=== PATIENT | female | born 1945 | race Caucasian/White ===

== ENCOUNTER 2017-10-13 07:47 | Outpatient (CLI) | payer OTHER ==
[~2017-10-13 07:47] MED LIST: ASA81 MG; ATACAND32 MG; CALCIUM1 TAB; CANDESARTAN-HC1 EAC1 PO; DICLOFENAC POTA50 MG; RISEDRONATE SODI5 MG; SYNTHROID50 MCG
== END 2017-10-13 07:53 | disposition home or self-care (01) ==
LOC: RX STUDY 07:47
DX: R13.10 Dysphagia, unspecified (principal)

== ENCOUNTER 2018-09-10 19:10 | Inpatient (IN) | payer OTHER ==
[~2018-09-10] VITALS: Ht 157.5 cm; Wt 49.9 kg
[2018-09-10] MEDS ORDERED: OMEPRAZOLE40 MG (19:29)
--- NOTE | 2018-09-10 19:33 | NUR ---
PTE ALERTA Y ORIENTADA X 3 ESFERAS, REFIERE VENIR POR INFECCION DE ORINA Y CON REFERIDO MEDICO POR ARF. SE PRESENTA A DR DONAHUE Y SE UBICA EN AREA DE OBSERVACION.
--- NOTE | 2018-09-10 21:25 | NUR ---
PACIENTE ALERTA Y ORIENTADA X3, CON BUEN PATRON RESPIIRATORIO Y SIGNOS VITALES ESTABLES, REFIERE LEVE DOLOR AL ORINAR. SE ABRE VENA CON ANGIO #20 PATENTE Y TINY DE EDEMA, SE MARICRUZ MUESTRAS BAJO MEDIDAS ASEPTICAS Y SE ADMINISTRAN MEDICAMENTOS TADEO ORDENADOS.
[2018-09-16] MEDS ORDERED: KEFLEX500 MG PO (10:59)
[2018-09-16] MEDS ORDERED: LEVOTHYROXINE50 MCG PO (10:59)
== END 2018-09-16 15:12 | disposition home or self-care (01) | DRG 690 ==
LOC: ER 19:10 → MEDI 09-11 08:20
PROVIDERS: ADMIT Internal Medicine
PROC: BT4JZZZ Ultrasonography of Kidneys and Bladder (ICD-10-PCS; principal; 2018-09-11)
DX: N39.0 Urinary tract infection, site not specified (principal); N17.8 Other acute kidney failure; E87.0 Hyperosmolality and hypernatremia; I10 Essential (primary) hypertension; E03.8 Other specified hypothyroidism; E86.0 Dehydration; M32.14 Glomerular disease in systemic lupus erythematosus; Z87.440 Personal history of urinary (tract) infections

== ENCOUNTER 2019-02-10 09:47 | Emergency (ER) | payer OTHER ==
[~2019-02-10] VITALS: Ht 152.4 cm; Wt 46.7 kg
[~2019-02-10 09:47] MED LIST changes: +KEFLEX500 MG PO; +LEVOTHYROXINE50 MCG PO; +OMEPRAZOLE40 MG
== END 2019-02-10 10:58 | disposition home or self-care (01) ==
LOC: ER 09:47
DX: N28.9 Disorder of kidney and ureter, unspecified (principal)

== ENCOUNTER 2019-04-22 19:23 | Emergency (ER) | payer OTHER ==
[~2019-04-22] VITALS: Ht 157.5 cm; Wt 48.5 kg
[2019-04-22] MEDS ORDERED: HYDROXYZIN10 MG/5 ML (19:35)
[2019-04-22] MEDS ORDERED: CARTIA XT240 MG (19:35)
== END 2019-04-22 23:08 | disposition home or self-care (01) ==
LOC: ER 19:23
DX: I16.1 Hypertensive emergency (principal); I10 Essential (primary) hypertension

== ENCOUNTER 2023-01-04 09:19 | Emergency (ER) | payer OTHER ==
[~2023-01-04] VITALS: Ht 157.5 cm; Wt 45.4 kg
[~2023-01-04 09:19] MED LIST changes: +CARTIA XT240 MG; +HYDROXYZIN10 MG/5 ML
[2023-01-04] MEDS ORDERED: NEURONTIN300 MG PO (10:53)
[2023-01-04] MEDS ORDERED: MEDROLPACK PO (10:53)
== END 2023-01-04 11:08 | disposition home or self-care (01) ==
LOC: ER 09:19
DX: R51.9 Headache, unspecified (principal)
CPT/HCPCS: 70150; 96372; 99284; J1100; J1885

== ENCOUNTER 2023-09-22 08:43 | Emergency (ER) | payer OTHER ==
[~2023-09-22] VITALS: Ht 152.4 cm; Wt 44.5 kg
[~2023-09-22 08:43] MED LIST changes: +MEDROLPACK PO; +NEURONTIN300 MG PO
[2023-09-22] MEDS ORDERED: AMLODIPINE-OLM1 EAC2 PO (08:52)
[2023-09-22] MEDS ORDERED: LOSARTAN POTASS50 MG PO (08:52)
[2023-09-22] MEDS ORDERED: FAMOtidine 10 MG/ML (4ML VIAL) IV STA (09:41)
[2023-09-22] MEDS ORDERED: RINGERS SOLUTION,LACTATED 500 ML IV STA (09:42)
[2023-09-22] MEDS ORDERED: FAMOTIDINE/PF 20 MG/2 ML VIAL ONE (09:49)
[2023-09-22 10:21] LABS: HEMATOCRIT 38.9 % (36.0-45.00); HEMOGLOBIN 13.1 g/dL (12.0-15.00); MEAN CELL VOLUME 94.1 fL (80.00-100.00); MEAN CORPUSCULAR HEMOGLOBIN 31.6 pg (27.00-32.0); MEAN CORPUSCULAR HGB CONC 33.6 g/dl (32.0-36.0); PLATELET COUNT 331 K/uL (150-450); RED BLOOD COUNT 4.13 M/uL (4.00-6.00); RED CELL DISTRIBUTION WIDTH 13.8 % (11.5-14.5)
[2023-09-22 10:47] LABS: CALCIUM 9.6 mg/dL (8.5-10.1); CREATININE SERUM 1.76 mg/dL (0.55-1.02); GFR 27.85
[2023-09-22 11:54] LABS: PH,URINE 5.5 (5.0-8.0); URINE APPEARANCE Clear; URINE BILIRRUBIN Negative (NEGATIVE); URINE BLOOD Negative; URINE COLOR Yellow; URINE GLUCOSE Negative (NEGATIVE); URINE LEUKOCYTE Small; URINE NITRATE Negative; URINE PROTEIN Negative (NEGATIVE); URINE UROBILINOGEN 0.2 E.U./dl
[2023-09-22 11:59] LABS: URINE BACTERIA 599.6 uL (0.0-1933); URINE EPITHELIAL CELLS 6.3 uL (0.0-38.8); URINE RBC 2.9 uL (0.0-20.8); URINE WBC 16.3 uL (0.0-23.2)
[2023-09-22] MEDS ORDERED: CIPROFLOXACIN IN 5 % DEXTROSE 400 MG/200 ML PIGGYBAG IV STA (14:04)
[2023-09-22] MEDS ORDERED: METRONIDAZOLE/SODIUM CHLORIDE 500 MG/100 ML PIGGYBACK IV STA (14:05)
[2023-09-22] MEDS ORDERED: CIPROFLOXACIN IN 5 % DEXTROSE 400 MG/200 ML PIGGYBAG IV ONE (14:17)
[2023-09-22] MEDS ORDERED: METRONIDAZOLE/SODIUM CHLORIDE 500 MG/100 ML PIGGYBACK IV ONE (14:18)
== END 2023-09-22 17:28 | disposition home or self-care (01) ==
LOC: ER 08:44
PROVIDERS: General Practice
DX: K52.9 Noninfective gastroenteritis and colitis, unspecified (principal); R10.9 Unspecified abdominal pain; I10 Essential (primary) hypertension
CPT/HCPCS: 36415; 96365; 99282; J0744; J3490 ×2

== ENCOUNTER 2023-09-30 00:10 | Emergency (ER) | payer OTHER ==
[~2023-09-30] VITALS: Ht 157.5 cm; Wt 43.1 kg
[~2023-09-30 00:10] MED LIST changes: +AMLODIPINE-OLM1 EAC2 PO; +LOSARTAN POTASS50 MG PO
[2023-09-30] MEDS ORDERED: METRONIDAZOLE500 MG (00:17)
[2023-09-30] MEDS ORDERED: CIPRO500 MG (00:17)
[2023-09-30] MEDS ORDERED: PEPCID AC20 MG (00:20)
[2023-09-30] MEDS ORDERED: HYOSCYAMINE0.125 M2 (00:20)
[2023-09-30] MEDS ORDERED: RINGERS SOLUTION,LACTATED 1,000 ML IV STA (00:50)
[2023-09-30] MEDS ORDERED: FAMOtidine 10 MG/ML (4ML VIAL) IV PUSH STA (00:51)
[2023-09-30] MEDS ORDERED: ONDANSETRON HCL 2 MG/ML VIAL IV STA (00:51)
[2023-09-30] MEDS ORDERED: HYOSCYAMINE SULFATE 0.125 MG TAB.SUBL SL ONE (01:00)
[2023-09-30 01:55] LABS: HEMATOCRIT 36.1 % (36.0-45.00); HEMOGLOBIN 12.2 g/dL (12.0-15.00); MEAN CELL VOLUME 91.2 fL (80.00-100.00); MEAN CORPUSCULAR HEMOGLOBIN 30.9 pg (27.00-32.0); MEAN CORPUSCULAR HGB CONC 33.9 g/dl (32.0-36.0); PLATELET COUNT 375 K/uL (150-450); RED BLOOD COUNT 3.96 M/uL (4.00-6.00); RED CELL DISTRIBUTION WIDTH 14.3 % (11.5-14.5)
[2023-09-30 02:11] LABS: CALCIUM 9.5 mg/dL (8.5-10.1); CREATININE SERUM 1.9 mg/dL (0.55-1.02); POTASSIUM 3.8 mEq/L (3.5-5.1)
[2023-09-30 02:33] LABS: GFR 25.5
== END 2023-09-30 02:54 | disposition home or self-care (01) ==
LOC: ER 00:11
DX: K52.89 Other specified noninfective gastroenteritis and colitis (principal)
CPT/HCPCS: 36415; 96365; 99282; J2405; J3490

== ENCOUNTER 2023-10-23 19:14 | Inpatient (IN) | payer OTHER ==
[~2023-10-23] VITALS: Ht 157.5 cm; Wt 36.3 kg
[~2023-10-23 19:14] MED LIST changes: +CIPRO500 MG; +HYOSCYAMINE0.125 M2; +METRONIDAZOLE500 MG; +PEPCID AC20 MG
--- NOTE | 2023-10-23 19:59 | NUR ---
PTE ALERTA Y ORIENTADA X3 REFIERE SENTIRSE DEBIL, NAUSEAS Y MALESTAR GENERAL POR VARIOS [place]. SE LE MARICRUZ S/V Y EKG Y SE PRESENTA ADR MOLLY Y MENCIONA UBICAR EN PASILLO
[2023-10-23] MEDS ORDERED: 0.9 % SODIUM CHLORIDE 1,000 ML IV ONE (20:15)
--- NOTE | 2023-10-23 20:43 | NUR ---
PTE ALERTA Y ORIENTADO X3. SE REALIZAN MUESTRAS DE LAB TADEO ORDEN MEDICA Y BAJO MEDIDAS ASEPTICAS. SE ADMNISTRA IVF BAJO MEDIDAS ASEPTICAS.
[2023-10-23 20:52] LABS: HEMOGLOBIN 10.4 g/dL (12.0-15.00); MEAN CELL VOLUME 92.8 fL (80.00-100.00); MEAN CORPUSCULAR HEMOGLOBIN 32.3 pg (27.00-32.0); MEAN CORPUSCULAR HGB CONC 34.8 g/dl (32.0-36.0); PLATELET COUNT 504 K/uL (150-450); RED BLOOD COUNT 3.23 M/uL (4.00-6.00); RED CELL DISTRIBUTION WIDTH 13.6 % (11.5-14.5)
[2023-10-23 21:12] LABS: INR 1.06; PROTHROMBIN TIME 11.1 SECONDS (9.0-11.5)
[2023-10-23 21:26] LABS: ALBUMIN 3.2 gm/dL (3.4-5.0); BILIRUBIN TOTAL 0.25 mg/dL (0.3-1.2); CALCIUM 10.1 mg/dL (8.5-10.1); CREATININE SERUM 3.9 mg/dL (0.55-1.02); GFR 11.12; GLOBULINA 4.5 G/DL (2.4-3.5); PHOSPHOROUS 3.6 mg/dL (2.5-4.9); POTASSIUM 4.26 mEq/L (3.5-5.1); TOTAL PROTEIN 7.7 gm/dL (6.4-8.2)
[2023-10-23 21:29] LABS: PH,URINE 6.5 (5.0-8.0); URINE APPEARANCE Clear; URINE BILIRRUBIN Negative (NEGATIVE); URINE BLOOD Negative; URINE COLOR Yellow; URINE GLUCOSE Negative (NEGATIVE); URINE KETONE Negative (NEGATIVE); URINE LEUKOCYTE Small; URINE NITRATE Negative; URINE PROTEIN Negative (NEGATIVE); URINE UROBILINOGEN 0.2 E.U./dl
[2023-10-23 21:32] LABS: URINE BACTERIA 30.2 uL (0.0-1933); URINE EPITHELIAL CELLS 4.6 uL (0.0-38.8); URINE WBC 57.8 uL (0.0-23.2)
[2023-10-23 21:33] LABS: URINE RBC 0.4 uL (0.0-20.8)
[2023-10-23] MEDS ORDERED: 0.9 % SODIUM CHLORIDE 1,000 ML IV SCH (22:45)
[2023-10-23] MEDS ORDERED: ONDANSETRON HCL 4 MG in 0.9 % SODIUM CHLORIDE 50 ML IV PRN (23:00)
[2023-10-23] MEDS ORDERED: hydrALAZINE HCL 25 MG TABLET PO PRN (23:00)
[2023-10-23] MEDS ORDERED: ACETAMINOPHEN 500 MG GEL..CAP PO PRN (23:00)
[2023-10-23] MEDS ORDERED: CEFTRIAXONE SODIUM 2,000 MG in 0.9 % SODIUM CHLORIDE 100 ML IV SCH (23:01)
[2023-10-24] MEDS ORDERED: CEFTRIAXONE SODIUM 2,000 MG VIAL ONE (00:20)
[2023-10-24] MEDS ORDERED: LEVOTHYROXINE SODIUM 50 MCG TABLET PO SCH (06:00)
[2023-10-24 08:33] LABS: MAGNESIUM 1.6 mg/dL (1.8-2.4); PHOSPHOROUS 3.9 mg/dL (2.5-4.9); TSH 2.23 uIU/mL (0.358-3.74)
[2023-10-24] MEDS ORDERED: CARVEDILOL 6.25 MG TABLET PO SCH (09:00)
[2023-10-24] MEDS ORDERED: PANTOPRAZOLE SODIUM 40 MG/VIAL VIAL IV SCH (09:00)
[2023-10-24] MEDS ORDERED: LACTOBACILLUS ACIDOPHILUS 1 CAP CAP PO SCH (17:00)
[2023-10-25 09:09] LABS: HEMOGLOBIN 9.9 g/dL (12.0-15.00); MEAN CELL VOLUME 95.8 fL (80.00-100.00); MEAN CORPUSCULAR HEMOGLOBIN 32.9 pg (27.00-32.0); MEAN CORPUSCULAR HGB CONC 34.3 g/dl (32.0-36.0); PLATELET COUNT 414 K/uL (150-450); RED BLOOD COUNT 3.02 M/uL (4.00-6.00); RED CELL DISTRIBUTION WIDTH 13.7 % (11.5-14.5)
[2023-10-25 09:52] LABS: ALBUMIN 2.5 gm/dL (3.4-5.0); BILIRUBIN TOTAL 0.21 mg/dL (0.3-1.2); CALCIUM 9.2 mg/dL (8.5-10.1); CREATININE SERUM 3.29 mg/dL (0.55-1.02); GFR 13.53; GLOBULINA 3.9 G/DL (2.4-3.5); MAGNESIUM 1.5 mg/dL (1.8-2.4); POTASSIUM 4.57 mEq/L (3.5-5.1); TOTAL PROTEIN 6.4 gm/dL (6.4-8.2)
[2023-10-25 10:03] LABS: C-REACTIVE PROTEIN 3.88 MG/DL (0.00-0.29)
[2023-10-25] MEDS ORDERED: MAGNESIUM CHLORIDE 70 MG TABLET.DR PO SCH (11:30)
[2023-10-25] MEDS ORDERED: AMINO ACIDS/PROTEIN HYDROLYS 30 ML BLIST.PACK PO SCH (13:00)
[2023-10-26] MEDS ORDERED: PANTOPRAZOLE SODIUM 40 MG TABLET.DR PO SCH (09:00)
[2023-10-26 09:43] LABS: ALBUMIN 2.5 gm/dL (3.4-5.0); BILIRUBIN TOTAL 0.17 mg/dL (0.3-1.2); CALCIUM 8.9 mg/dL (8.5-10.1); CREATININE SERUM 2.82 mg/dL (0.55-1.02); GFR 16.17; GLOBULINA 3.7 G/DL (2.4-3.5); POTASSIUM 3.99 mEq/L (3.5-5.1); TOTAL PROTEIN 6.2 gm/dL (6.4-8.2)
[2023-10-27 13:03] LABS: ALBUMIN 2.7 gm/dL (3.4-5.0); CREATININE SERUM 2.33 mg/dL (0.55-1.02); GFR 20.15; PHOSPHOROUS 2.9 mg/dL (2.5-4.9); POTASSIUM 3.8 mEq/L (3.5-5.1)
== END 2023-10-28 11:30 | disposition home or self-care (01) | DRG 683 ==
LOC: ER 19:15 → MEDJ 22:59
PROVIDERS: General Practice; Internal Medicine Infectious Disease; ADMIT Internal Medicine; ATTEND Internal Medicine
PROC: BW40ZZZ Ultrasonography of Abdomen (ICD-10-PCS; principal; 2023-10-23)
PROC: B54DZZZ Ultrasonography of Bilateral Lower Extremity Veins (ICD-10-PCS; 2023-10-24)
DX: N17.9 Acute kidney failure, unspecified (principal); I13.0 Hypertensive heart and chronic kidney disease with heart failure and stage 1 through stage 4 chronic kidney disease, or unspecified chronic kidney disease; N39.0 Urinary tract infection, site not specified; I50.9 Heart failure, unspecified; N18.30 Chronic kidney disease, stage 3 unspecified; E86.0 Dehydration; E03.9 Hypothyroidism, unspecified; E78.5 Hyperlipidemia, unspecified; D63.1 Anemia in chronic kidney disease; I87.2 Venous insufficiency (chronic) (peripheral)

== ENCOUNTER 2025-02-21 11:45 | Inpatient (IN) | payer OTHER ==
[~2025-02-21] VITALS: Ht 157.5 cm; Wt 63.5 kg
--- NOTE | 2025-02-21 11:56 | NUR ---
PTE ALERTA Y ORIENTADA X3 REFIERE LEVANARSE CON EPISODIOS DE VOMITOS, DIARREAS Y DOLOR ABDOMINAL. SE CELINA S/V Y SE UBICA.
[2025-02-21] MEDS ORDERED: CEFTRIAXONE SODIUM 1,000 MG VIAL IV ONE (12:45)
[2025-02-21] MEDS ORDERED: LOPERAMIDE HCL 2 MG CAPSULE PO ONE (12:45)
[2025-02-21] MEDS ORDERED: 0.9 % SODIUM CHLORIDE 1,000 ML IV ONE (12:45)
[2025-02-21 15:11] LABS: BASO % 0.2 % (0.1-1.2); EOS # 0.00 (0.04-0.54); EOS % 0.0 % (0.7-7.0); LYMPH # 0.39 (1.18-3.74); LYMPH % 1.6 % (19.3-53.1); MEAN PLATELET VOLUME 9.10 fl (9.4-12.4); MONO # 0.24 (0.24-0.82); MONO % 1.0 % (4.7-12.5); NEUT # 24.26 (1.56-6.13); NEUT % 96.6 % (34.0-71.1); RED CELL DISTRIBUTION WIDTH 13.0 % (11.6-14.4)
--- NOTE | 2025-02-21 15:11 | NUR ---
SE ORIENTA A PTE SOBRE ORDEN DE TRATAMIENTO ORDENADA. PTE REFIERE COMPRENDER TRATAMIENTO MEDICO ORDENADO. SE CELINA MUESTRAS Y SE ADMINISTRA MEDICAMENTOS SIGUIENDO LAS MEDIDAS ASEPTICAS Y SE UBICA EN ESPERA DE RESULTADOS.
[2025-02-21 15:21] LABS: URINE APPEARANCE Clear; URINE BILIRRUBIN Negative (NEGATIVE); URINE BLOOD Small; URINE COLOR Yellow; URINE GLUCOSE Negative (NEGATIVE); URINE KETONE Trace (NEGATIVE); URINE LEUKOCYTE Negative; URINE NITRATE Negative; URINE PROTEIN 30 (NEGATIVE); URINE UROBILINOGEN 0.2 E.U./dl
[2025-02-21 15:26] LABS: URINE BACTERIA 6.0 uL (0.0-1933); URINE EPITHELIAL CELLS 1.6 uL (0.0-38.8); URINE RBC 35.0 uL (0.0-20.8); URINE WBC 3.8 uL (0.0-23.2)
[2025-02-21 15:36] LABS: COVID-19 AG NEGATIVE (NEGATIVE)
[2025-02-21 15:52] LABS: ALT/SGPT 24 U/L (12-78); AST/SGOT 27 U/L (15-37); BILIRUBIN TOTAL 0.39 mg/dL (0.3-1.2); BILIRUBIN,CONJUGATED < 0.10 mg/dL (0.0-0.2); BUN CREA RATIO 19 (7.0-25.0); CREATININE SERUM 1.34 mg/dL (0.55-1.02); GFR 38.06; GLUCOSE FASTING 170 mg/dL (65-100); OSMOLALITY SERUM 294 MOSM/KG (275-295)
[2025-02-21 15:53] LABS: URINE CAST 0.29 uL (0.0-1.40)
[2025-02-21] MEDS ORDERED: CIPROFLOXACIN IN 5 % DEXTROSE 200 ML IV SCH (18:51)
[2025-02-21] MEDS ORDERED: FAMOTIDINE/PF 20 MG in 0.9 % SODIUM CHLORIDE 8 ML IV PUSH SCH (19:29)
[2025-02-21] MEDS ORDERED: 0.9 % SODIUM CHLORIDE 1,000 ML IV SCH (19:30)
[2025-02-21] MEDS ORDERED: METHYLPREDNISOLONE SOD SUCC 125 MG VIAL IV ONE (19:30)
[2025-02-21] MEDS ORDERED: ONDANSETRON HCL 4 MG in 0.9 % SODIUM CHLORIDE 50 ML IV PRN (19:30)
[2025-02-21] MEDS ORDERED: AMLODIPINE BESYLATE 10 MG TABLET PO SCH (19:32)
[2025-02-21 22:28] VITALS: BP 160/70; O2SAT 100
[2025-02-22 03:13] VITALS: BP 125/71; O2SAT 98
[2025-02-22 09:00] VITALS: BP 136/75; O2SAT 100
[2025-02-22 10:52] LABS: BASO % 0.1 % (0.1-1.2); EOS # 0.00 (0.04-0.54); EOS % 0.0 % (0.7-7.0); LYMPH # 1.19 (1.18-3.74); LYMPH % 5.0 % (19.3-53.1); MEAN PLATELET VOLUME 8.90 fl (9.4-12.4); MONO # 0.44 (0.24-0.82); MONO % 1.9 % (4.7-12.5); NEUT # 21.91 (1.56-6.13); NEUT % 92.4 % (34.0-71.1); RED CELL DISTRIBUTION WIDTH 13.1 % (11.6-14.4)
[2025-02-22 11:18] LABS: BUN CREA RATIO 20.0 (7.0-25.0); CREATININE SERUM 1.18 mg/dL (0.55-1.02); GFR 44.07; GLUCOSE FASTING 132.0 mg/dL (65-100); OSMOLALITY SERUM 295.0 MOSM/KG (275-295)
[2025-02-22 16:55] VITALS: BP 140/70
[2025-02-23 03:22] VITALS: BP 114/72; O2SAT 98
[2025-02-23] MEDS ORDERED: LEVOTHYROXINE SODIUM 50 MCG TABLET PO SCH (06:00)
[2025-02-23] MEDS ORDERED: ROSUVASTATIN CALCIUM 10 MG TABLET PO SCH (09:00)
[2025-02-23] MEDS ORDERED: LOPERAMIDE HCL 2 MG CAPSULE PO PRN (10:00)
[2025-02-23 11:08] VITALS: BP 138/63; O2SAT 99
[2025-02-23 12:35] LABS: BASO % 0.1 % (0.1-1.2); EOS # 0.01 (0.04-0.54); EOS % 0.0 % (0.7-7.0); LYMPH # 2.37 (1.18-3.74); LYMPH % 10.4 % (19.3-53.1); MEAN PLATELET VOLUME 9.20 fl (9.4-12.4); MONO # 1.44 (0.24-0.82); MONO % 6.3 % (4.7-12.5); NEUT # 18.85 (1.56-6.13); NEUT % 82.4 % (34.0-71.1); RED CELL DISTRIBUTION WIDTH 13.4 % (11.6-14.4)
[2025-02-23 18:07] VITALS: BP 1141/70
[2025-02-24 01:10] VITALS: BP 110/65; O2SAT 98
[2025-02-24 06:50] LABS: BUN CREA RATIO 16.0 (7.0-25.0); CREATININE SERUM 1.12 mg/dL (0.55-1.02); GFR 46.81; GLUCOSE FASTING 84.0 mg/dL (65-100); OSMOLALITY SERUM 294.0 MOSM/KG (275-295)
[2025-02-24] MEDS ORDERED: LOPERAMIDE HCL 2 MG CAPSULE PO PRN (08:30)
[2025-02-24 09:29] VITALS: BP 133/72; O2SAT 99
[2025-02-24 16:48] LABS: BASO % 0.3 % (0.1-1.2); EOS # 0.18 (0.04-0.54); EOS % 1.8 % (0.7-7.0); LYMPH # 2.23 (1.18-3.74); LYMPH % 22.2 % (19.3-53.1); MEAN PLATELET VOLUME 9.00 fl (9.4-12.4); MONO # 0.89 (0.24-0.82); MONO % 8.8 % (4.7-12.5); NEUT # 6.61 (1.56-6.13); NEUT % 65.7 % (34.0-71.1); RED CELL DISTRIBUTION WIDTH 13.2 % (11.6-14.4)
== END 2025-02-24 21:12 | disposition home or self-care (01) | DRG 392 ==
LOC: ER 11:45 → MEDI 20:05
PROVIDERS: Emergency Medicine; General Practice; Specialist/Technologist, Other Nephrology; ADMIT Student in an Organized Health Care Education/Training Program; ATTEND Student in an Organized Health Care Education/Training Program
PROC: BW21ZZZ Computerized Tomography (CT Scan) of Abdomen and Pelvis (ICD-10-PCS; principal; 2025-02-21)
DX: K52.9 Noninfective gastroenteritis and colitis, unspecified (principal); N17.9 Acute kidney failure, unspecified; I10 Essential (primary) hypertension; E03.9 Hypothyroidism, unspecified; E78.5 Hyperlipidemia, unspecified; K52.832 Lymphocytic colitis